=== PATIENT | female | born 1945 | race African-American/Black ===

== ENCOUNTER 2022-01-09 05:52 | Inpatient (IN) ==
[~2022-01-09 05:52] MED LIST: VANCOMYCIN INJ 1,000 MG in SODIUM CHLORIDE 0.9% 250 ML IV ONE
[2022-01-09] MEDS ORDERED: VANCOMYCIN INJ 1,000 MG in SODIUM CHLORIDE 0.9% 250 ML IV ONE (06:00)
[2022-01-09] MEDS ORDERED: FAMOTIDINE 20 MG TABLET PO ONE (07:25)
[2022-01-09] MEDS ORDERED: DIAZEPAM 5 MG TABLET PO ONE (07:25)
[2022-01-09] MEDS ORDERED: GABAPENTIN 400 MG CAPSULE PO ONE (07:25)
[2022-01-09] MEDS ORDERED: ACETAMINOPHEN 500 MG TABLET PO ONE (07:25)
[2022-01-09] MEDS ORDERED: LACTATED RINGERS 1,000 ML IV SCH (07:30)
[2022-01-09] MEDS ORDERED: diphenhydrAMINE CAP 25 MG CAPSULE PO PRN (10:19)
[2022-01-09] MEDS ORDERED: ONDANSETRON 4 MG/2 ML VIAL IV PRN (10:19)
[2022-01-09] MEDS ORDERED: TEMAZEPAM 7.5 MG CAPSULE PO PRN (10:19)
[2022-01-09] MEDS ORDERED: LACTULOSE 20 GM/30 ML UDCUP PO PRN (10:19)
[2022-01-09] MEDS ORDERED: BISACODYL 10 MG SUPP RECTAL PRN (10:19)
[2022-01-09] MEDS ORDERED: PROMETHAZINE 25 MG/1 ML VIAL IM PRN (10:19)
[2022-01-09] MEDS ORDERED: MAGNESIUM HYDROXIDE SUSP 30 ML UDCUP PO PRN (10:19)
[2022-01-09] MEDS ORDERED: MORPHINE 2 MG/1 ML SYRINGE IV PRN ×2 (10:19→10:28)
[2022-01-09] MEDS: ceFAZolin 2,000 MG/50 ML DUPLEX IV SCH ×2 (15:35→23:34)
[2022-01-09] MEDS: DOCUSATE SODIUM 100 MG CAPSULE PO SCH (20:53)
[2022-01-09] MEDS ORDERED: APIXABAN 2.5 MG TABLET PO SCH (21:00)
[2022-01-10 05:07] LABS: Basophils % 0.1 % (0.0-0.8); Hematocrit 35.8 VOL% (35.7-47.0); Hemoglobin 12.2 GM/DL (12.0-16.0); Immature Granulocytes % 0.4 %; Immature Granulocytes Absolute 0.03 #; Lymphocytes # 1.3 10*3/uL (1.4-4.0); Mean Corpuscular HGB Conc 34.1 GM/DL (32-36); Mean Corpuscular Volume 90.9 FL (87-102); Mean Platelet Volume 10.4 FL (9.6-12.0); Monocytes # 0.6 10*3/uL (0.11-0.8); Monocytes % 8.6 % (1.7-12.7); Neutrophils % 72.9 % (38.7-73.9); Platelet Count 233 T/CUMM (130-400); Red Blood Count 3.94 MC/CUMM (3.8-5.5); Red Cell Distribution Width 12.3 % (9.3-17.3); White Blood Count 7.1 T/CUMM (4-12)
[2022-01-10 05:20] LABS: Calcium 9.1 MG/DL (8.5-10.1); Osmolality,Calculated 286.1 MOS/KG (273-304)
[2022-01-10] MEDS: VALSARTAN 160 MG TABLET PO SCH (09:33)
[2022-01-10] MEDS: APIXABAN 2.5 MG TABLET PO SCH ×2 (09:34→21:01)
[2022-01-10] MEDS: hydroCHLOROthiazide 12.5 MG CAPSULE PO SCH (09:34)
[2022-01-10] MEDS: DOCUSATE SODIUM 100 MG CAPSULE PO SCH ×2 (09:35→21:01)
[2022-01-10] MEDS ORDERED: ACETAMINOPHEN 325 MG TABLET PO PRN (10:20)
[2022-01-11] MEDS: hydroCHLOROthiazide 12.5 MG CAPSULE PO SCH (08:19)
[2022-01-11] MEDS: APIXABAN 2.5 MG TABLET PO SCH (08:19)
[2022-01-11] MEDS: DOCUSATE SODIUM 100 MG CAPSULE PO SCH (08:19)
[2022-01-11] MEDS: VALSARTAN 160 MG TABLET PO SCH (08:19)
[2022-01-11 12:21] VITALS: BP 153/74
== END 2022-01-11 14:46 | DRG 470 ==
LOC: N.OR 05:52 → N.SDSINP 05:53 → N.3E 12:33
PROVIDERS: ADMIT Orthopaedic Surgery; ATTEND Orthopaedic Surgery